=== PATIENT | male | born 1945 | race Caucasian/White ===

== ENCOUNTER 2020-02-29 10:55 | Inpatient (IN) | payer MEDICARE, OTHER ==
[2020-02-29] MEDS ORDERED: SODIUM CHLORIDE 0.9% 1000ML 1,000 ML IVS ONE (12:09)
--- NOTE | 2020-02-29 13:14 | CT ---
EXAM DESCRIPTION: Abdoment/Pelvis w/o Contrast CLINICAL HISTORY: possible uti, hx multiple urinary proce, diversion COMPARISON: None. TECHNIQUE: Noncontrast transaxial CT images of the abdomen and pelvis are obtained. This exam was performed according to our departmental dose-optimization program, which includes automated exposure control, adjustment of the mA and/or kV according to patient size and/or use of iterative reconstruction technique . FINDINGS: Lung bases are unremarkable. Cardiac pacemaker leads are seen. Given the limitations of a noncontrast exam a small hypodensity in the inferior right lobe liver is seen measuring 10 mm. Noncontrast appearance of the spleen, pancreas, and gallbladder are unremarkable. Right adrenal gland mass measures 2.6 cm with Hounsfield units of 6 compatible with adrenal adenoma. Left adrenal gland unremarkable. Moderate vascular calcifications. No left nephrolithiasis or ureteral calcification/obstruction. 4 mm nonobstructing calcification upper pole calyx of left kidney. Several nonobstructing calcifications in lower pole calyx of left kidney measure 9 mm. Percutaneous nephrostomy tube is seen in place from a lower pole access in the left kidney. No hydronephrosis. Small amount of air in the collecting system. No ureteral dilatation. Calcification measuring 4 mm x 5.5 mm in the region of the ureter extending anterior to the common iliac vessel is seen. Moderate calcifications of the left greater than right iliac arteries is seen. Postsurgical changes from resection of the urinary bladder with neobladder in the right lower quadrant. Ileostomy in the right lower quadrant is seen. Prostate is not identified and may be surgically absent as well. Small simple ascites in the dependent portion of the pelvis. Multiple surgical clips along the pelvic sidewall bilaterally. Moderate scattered diverticuli of the descending to sigmoid colon without associated inflammatory changes or fluid collections. Stomach poorly distended but unremarkable. No small bowel obstruction or bowel wall thickening. Small fat-containing umbilical hernia. No pathologically enlarged abdominal or retroperitoneal lymphadenopathy. Osseous structures show no aggressive bony lesions. Moderate to severe spondylitic changes of the spine are seen. IMPRESSION: Surgical absence of the urinary bladder prostate are seen with right lower quadrant neobladder. No complicating features. Left nephrostomy tube is seen in place without hydronephrosis. Possible mid ureteral calcification at the level of the left common iliac artery versus vascular calcification. Nonobstructing left nephrolithiasis is seen. Moderate colon diverticulosis without CT evidence of diverticulitis. Small ascites in the pelvis is likely reactive. Indeterminate hypodense lesion in the right lobe of the liver is seen. Electronically signed by: Abdiaziz Coombs MD 02/29/2020 1:12 PM CERTIFIED LEGAL SECRETARY SPECIALIST
[2020-02-29] MEDS ORDERED: FLUCONAZOLE 100 MG TAB PO ONE (13:40)
[2020-02-29] MEDS ORDERED: CEFEPIME 2 GM in SODIUM CHL 0.9% 100ML MINI-BAG 100 ML IVPB ONE (13:41)
[2020-02-29] MEDS ORDERED: metroNIDAZOLE IV PREMIX 500MG 500 MG in PREMIX BAG 1 BAG IVPB ONE (13:41)
[2020-02-29] MEDS ORDERED: levoFLOXacin 500MG IV 500 MG in PREMIX BAG 1 BAG IVPB ONE (13:41)
[2020-02-29] MEDS ORDERED: ACETAMINOPHEN 325 MG TAB PO ONE (14:58)
--- NOTE | 2020-02-29 14:58 | ED.PDOC ---
History of Present Illness - General Chief Complaint: Fever Time Seen by Provider: 02/29/20 11:55 Source: patient Exam Limitations: no limitations - History of Present Illness Initial Comments: The patient is a 74-year-old male presented to emergency room secondary to feeling like he was getting septic again from a Another urinary tract infection. The patient has had at least 3 significant ur inary tract infection since November. He has had it at [facility]. The patient has had multiple urinary procedures secondary to prostate bladder cancer with diverting urinary measures on multiple occasions. He apparently has an obstructing stone on the left and has an external diverting urostomy on the left and apparently a ureter diverted to an ileostomy on the right, with a neobladder formation. The patient is not having any particular pain aside from generalized body aches. No runny nose or sore throat. No known significant coronavirus exposure. No shortness of breath. No chest pain. He started feeling weak and shaky this morning like he has in the past. Timing/Duration: 1 week, constant, getting worse Severity: moderate, severe Improving Factors: nothing Worsening Factors: nothing Associated Symptoms: diaphoresis, loss of appetite, malaise, weakness Allergies/Adverse Reactions: Allergies NO KNOWN ALLERGY Allergy (Verified 02/29/20 12:24) Review of Systems - Review of Systems Constitutional: States: malaise, weakness - Generalized EENTM: States: no symptoms reported Respiratory: States: no symptoms reported Cardiology: States: no symptoms reported Gastrointestinal/Abdominal: States: nausea - Mild queasiness Genitourinary: States: see HPI Musculoskeletal: States: other - General myalgias Skin: States: no symptoms reported Neurological: States: headache - Mild Endocrine: States: no symptoms reported All other Systems: No Change from Baseline Past Medical History (General) - Patient Medical History Hx Seizures: No Hx Stroke: No Hx Dementia: No Hx Asthma: No Hx of COPD: No Hx Cardiac Disorders: Yes - A FIB Hx Pacemaker: Yes Hx Hypertension: Yes Hx Thyroid Disease: No Hx Diabetes: No Hx Gastroesophageal Reflux: No Hx Renal Disease: Yes - Bladder and prostate removel and use of bladder bag and leg bag. Hx Cancer: Yes - Bladder, prostate and colen. Hx of HIV: No Hx Hepatitis C: No Hx MRSA: No Surgical History: other - Vaccination History Hx Tetanus, Diphtheria Vaccination: No Hx Influenza Vaccination: No Hx Pneumococcal Vaccination: No - Social History Hx Tobacco Use: No Hx Chewing Tobacco Use: No Hx Alcohol Use: Yes Hx Substance Use: No Hx Substance Use Treatment: No Hx Depression: No Feels Threatened In Home Enviroment: No Feels Threatened In a Relationship: No Hx Physical Abuse: No Hx Emotional Abuse: No Hx Suspected Abuse: No - Female History Patient is a Female of Child Bearing Age (10 -59 yrs old): No - Triage Comment ED Triage Comment: The patient ambliated into ER bed 2 and was alert and oriented times 4. He complained of left lower back and left upper abdominal pain simular to the pain he had when the kidney stone was discovered. He advised that he had just not felt well for the past 2 days. Physical Exam - Physical Exam General Appearance: Alert, No apparent distress Eye Exam: bilateral normal Ears, Nose, Throat: hearing grossly normal, normal pharynx Neck: full range of motion, supple Respiratory: lungs clear, normal breath sounds, no respiratory distress, no accessory muscle use Cardiovascular/Chest: normal peripheral pulses, regular rate, rhythm, no edema Peripheral Pulses: radial,right: 2+, radial,left: 2+ Gastrointestinal/Abdominal: non tender, soft, other - Surgical changes noted Rectal Exam: deferred Back Exam: no CVA tenderness, no vertebral tenderness Extremity: normal range of motion, non-tender, normal inspection, no pedal edema, normal capillary refill 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, alert, normal mood/affect, oriented x 3 Skin Exam: normal color Comments: Vital Signs - 24 hr 02/29/20 02/29/20 02/29/20 11:22 12:00 12:49 Temperature 100.4 F H Pulse Rate [ 93 H 90 85 Pulse Ox] Respiratory 18 16 16 Rate Blood Pressure 129/67 121/73 138/76 [Left Arm] O2 Sat by Pulse 97 95 100 Oximetry 02/29/20 02/29/20 13:00 14:00 Temperature Pulse Rate [ 79 81 Pulse Ox] Respiratory 16 16 Rate Blood Pressure 128/68 127/65 [Left Arm] O2 Sat by Pulse 96 96 Oximetry Progress - Progress Progress: 02/29/20 15:02 The patient is a 74-year-old male presents emergency room with what appears to be a recurrence of bilateral pyelonephritis related to his multiple urological procedures. The patient is likely currently in septicemia. Blood cultures and urine cultures are being performed. He has received a liter of IV fluids. He is currently being placed on broad-spectrum antibiotics of cefepime, metronidazole and ciprofloxacin. Culture results have been requested from [facility] but are still pending at this time. The patient is going to be admitted for further antibiotic therapy. He has tested negative for coronavirus here today. Admit for continued care. blanca adamson [id number] - Results/Orders Results/Orders: Respiratory panel was negative. Pelvis shows the room placed. 10 mm hypodensity to the inferior right lower l obe liver. 2.6 cm right adrenal adenoma. Percutaneous nephrostomy tube in place from the lower pole of the left kidney. There is a distal obstructing stone in the ureter below it. Ileostomy in the right lower quadrant. Neobladder formation in the right lower quadrant. Is otherwise. See report for details. EKG shows mild right axis deviation. Normal R wave progression. No ST segment or T wave changes indicative of acute ischemia. Normal sinus rhythm 86 bpm. Normal QT interval. Laboratory Results - last 24 hr 02/29/20 02/29/20 02/29/20 11:50 12:20 12:25 WBC RBC Hgb Hct MCV MCH MCHC RDW Plt Count MPV Absolute Neuts (auto) Absolute Lymphs (auto) Absolute Monos (auto) Absolute Eos (auto) Absolute Basos (auto) Neutrophils % Lymphocytes % Monocytes % Eosinophils % Basophils % PT INR PTT (SP) D-Dimer, Quantitative Sodium 132 L Potassium 3.3 L Chloride 101 Carbon Dioxide 22 Anion Gap 12.3 BUN 12 Creatinine 0.91 BUN/Creatinine Ratio 13.2 Random Glucose 129 H Serum Osmolality 266.0 L Lactic Acid Calcium 8.4 Magnesium 1.7 L Total Bilirubin 1.2 H AST 23 ALT 17 Alkaline Phosphatase 53 Creatine Kinase 148 CK-MB (CK-2) 0.6 CK-MB (CK-2) % Not Reportable Troponin I 0.02 B-Natriuretic Peptide 128.0 H Serum Total Protein 7.0 Albumin 3.4 Globulin 3.6 H Albumin/Globulin Ratio 0.9 L Amylase 40 Lipase 26 Urine Color Yellow Yellow Urine Appearance Turbid Cloudy Urine pH 7.5 6.0 Ur Specific [place] 1.020 1.025 Urine Protein 100 H 100 H Urine Glucose (UA) Negative Negative Urine Ketones Negative Negative Urine Blood Moderate H Large H Urine Nitrite Positive H Positive H Urine Bilirubin Negative Negative Urine Urobilinogen 0.2 0.2 Ur Leukocyte Esterase Large H Large H Urine RBC 10-20 H 20-30 H Urine WBC >100 H Tntc H Ur Epithelial Cells 0 0 Urine Bacteria 3+ H 4+ H Urine Mucus Large Trace Urine Yeast 3+ budding 02/29/20 02/29/20 02/29/20 12:25 12:25 12:25 WBC 10.8 RBC 3.90 L Hgb 10.1 L Hct 30.4 L MCV 77.8 L MCH 26.0 L MCHC 33.4 RDW 17.1 H Plt Count 197 MPV 7.4 Absolute Neuts (auto) 8.80 H Absolute Lymphs (auto) 0.70 L Absolute Monos (auto) 1.30 H Absolute Eos (auto) 0.00 Absolute Basos (auto) 0.00 Neutrophils % 81.3 H Lymphocytes % 6.1 L Monocytes % 12.3 H Eosinophils % 0.0 L Basophils % 0.3 PT 12.7 H INR 1.28 H PTT (SP) 31.3 D-Dimer, Quantitative 531.0 H Sodium Potassium Chloride Carbon Dioxide Anion Gap BUN Creatinine BUN/Creatinine Ratio Random Glucose Serum Osmolality Lactic Acid 1.5 Calcium Magnesium Total Bilirubin AST ALT Alkaline Phosphatase Creatine Kinase CK-MB (CK-2) CK-MB (CK-2) % Troponin I B-Natriuretic Peptide Serum Total Protein Albumin Globulin Albumin/Globulin Ratio Amylase Lipase Urine Color Urine Appearance Urine pH Ur Specific [place] Urine Protein Urine Glucose (UA) Urine Ketones Urine Blood Urine Nitrite Urine Bilirubin Urine Urobilinogen Ur Leukocyte Esterase Urine RBC Urine WBC Ur Epithelial Cells Urine Bacteria Urine Mucus Urine Yeast Departure - Departure Clinical Impression: Pyelonephritis, Septicemia Disposition: Admit Patient Departure Forms: ED Discharge - Pt. Copy, Patient Portal Self Enrollment Decision To Admit - Decistion To Admit Decision to Admit Reason: Medical Nature Decision to Admit Date: 02/29/20 Decision to Admit Time: 15:04
--- NOTE | 2020-02-29 16:08 | HP ---
SUPERVISING PHYSICIAN: Modesto Krishna MD CHIEF COMPLAINT: "I probably have a urinary tract infection because I feel like shit." HISTORY OF PRESENT ILLNESS: This is a 74 year-old male patient who came to the Emergency Room with a 2-day history of bilateral back pain, fever and weakness consistent with 3 other urinary tract infections that he has had since November. This patient had bladder cancer and subsequently on November 24, had a cystectomy, partial bowel resection, prostatectomy with a diverting urostomy. Then, about 4 weeks ago the patient had an obstructing stone on the left so he had a nephrostomy tube placement on the left. Throughout this time, he had 3 separate occasions where he had urinary tract infections. He required IV antibiotics but is not near his home. He lives in [place], he does use [facility] for his urology issues, however, he is in [place] because he was deer hunting. Once again, these symptoms started about 2 days ago and he came to the Emergency Room today. He was found to have urinalysis consistent with urinary tract infection. In fact, he had 2 different urinalyses, one from the urostomy and one from the nephrostomy. Both were indicative of urinary tract infections with positive nitrites. Chemistry with a slightly low potassium at 3.3, sodium 132. Magnesium was low at 1.7, total bilirubin 1.2. Lactic acid 1.5. Coagulation studies were unremarkable. He did have a normal white count of 10.8 but did have a left shift of 81.3% neutrophils. Given his urostomy and nephrostomy and history of frequent urinary tract infections, he was referred for admission. The patient is alert and oriented and in no distress. PAST MEDICAL HISTORY: 1. Hypertension. 2. Gastroesophageal reflux disease. 3. Bladder cancer. 4. Cardiac arrhythmias. PAST SURGICAL HISTORY: 1. Lithotripsy. 2. Pacemaker. 3. Cardioversions, 4. Cystectomy with prostatectomy and partial bowel resection. CURRENT MEDICATIONS: The patient does not know his medications and wants us to contact [facility] for an accurate medication list. ALLERGIES: No known drug allergies. FAMILY HISTORY: His mother had Parkinson's and perivascular disease. A brother had renal cancer. SOCIAL HISTORY: The patient quit smoking about 3 to 4 years ago. He drinks scotch on occasion and has an occasional beer but nothing consistent. No illegal drugs. REVIEW OF SYSTEMS: CONSTITUTIONAL: Positive for fever and chills and weakness and fatigue. HEENT: No sore throat, nasal drainage, vision changes. CARDIOVASCULAR: No chest pain or palpitations or peripheral edema. RESPIRATORY: No cough, hemoptysis or pleuritic chest pain. GI: No nausea, vomiting or diarrhea, constipation or abdominal pain. : Positive for CVA tenderness bilaterally. No frequency, no dysuria, although he does have urostomy and nephrostomy, no polydipsia or polyuria or heat or cold intolerance. MUSCULOSKELETAL: No joint pain, joint swelling or muscle cramps. HEMATOLOGIC: No easy bruising or transfusion reaction. NEUROLOGICAL: No seizures, syncope or paraesthesias. PHYSICAL EXAMINATION: VITAL SIGNS: Blood pressure 111/60, heart rate 90, respiratory rate 20, temperature 98.2, oxygen saturation 97%. GENERAL: Mr. Porras is a 74 year-old male in no acute distress. NEUROLOGICAL: The patient is alert. CHEST: Lungs are clear to auscultation bilaterally. CARDIOVASCULAR: Regular rate and rhythm. Normal S1, S2. ABDOMEN: Soft, positive bowel sounds. He has the right lower quadrant urostomy in place and has the left nephrostomy tube noted as well. EXTREMITIES: Lower extremities without edema, 2+ pulses. Capillary refill less than 2 seconds. Labs are discussed in the history of present illness. He also have a CT abdomen/pelvis which does not reveal any significant hydronephrosis. ASSESSMENT: 1. Bilateral pyelonephritis. 2. History of bladder cancer status post cystectomy with prostatectomy and partial bowel resection with a urostomy and left-sided nephrostomy. 3. Hypertension. 4, Electrolyte imbalance. 5. Gastroesophageal reflux disease. PLAN: At this time, the patient will be admitted and placed on empiric antibiotics. Given the frequency of urinary tract infections since November, I am going to place him on meropenem and monitor the cultures. We will place on continuous IV fluids with 20 of potassium. I will give him a dose of magnesium as well. We will [id number] to get his records from [facility] and place him on Lovenox for DVT prophylaxis. Will recheck labs in the morning. #[id number] [facility]
[2020-02-29] MEDS ORDERED: LACTATED RINGERS 1,000 ML IVS PRN (17:08)
[2020-02-29] MEDS ORDERED: SODIUM CHLORIDE 0.9% (FLUSH) 10 ML SYG IV PRN (17:08)
[2020-02-29] MEDS ORDERED: MAGNESIUM SULFATE PREMIX 2GM 2 GM in PREMIX BAG 1 BAG IVPB ONE (17:22)
[2020-02-29] MEDS ORDERED: IV SET AND CAP CHANGE INJ INJ SCH (17:30)
[2020-02-29] MEDS ORDERED: ENOXAPARIN SODIUM 40 MG/0.4 ML SYG SUBCU SCH (17:30)
[2020-02-29] MEDS ORDERED: MAGNESIUM SULFATE PREMIX 2GM 50 ML IVPB ONE (18:09)
[2020-02-29] MEDS: KCL 20 MEQ/NS 1,000 ML IVS PRN (18:21)
[2020-02-29] MEDS ORDERED: traMADol HCL 50 MG TAB PO PRN (20:14)
[2020-02-29] MEDS: MEROPENEM 1 GM in SODIUM CHL 0.9% 50ML MIN-BAG+ 50 ML IVPB SCH (20:46)
[2020-02-29] MEDS: OMEPRAZOLE CAP 20 MG CAP PO SCH (20:53)
[2020-02-29] MEDS: APIXABAN 5 MG TAB PO SCH (20:53)
[2020-02-29] MEDS: METOPROLOL TARTRATE 25 MG TAB PO SCH (20:53)
[2020-02-29] MEDS: ACETAMINOPHEN 325 MG TAB PO PRN (21:10)
[2020-03-01] MEDS: KCL 20 MEQ/NS 1,000 ML IVS PRN ×3 (02:46→20:24)
[2020-03-01] MEDS: FLECAINIDE 50 MG TAB PO SCH ×3 (02:47→19:55)
[2020-03-01] MEDS: MEROPENEM 1 GM in SODIUM CHL 0.9% 50ML MIN-BAG+ 50 ML IVPB SCH ×4 (03:01→20:21)
[2020-03-01] MEDS: TAMSULOSIN 0.4 MG CAP PO SCH (10:15)
[2020-03-01] MEDS: APIXABAN 5 MG TAB PO SCH ×2 (10:15→19:55)
[2020-03-01] MEDS: METOPROLOL TARTRATE 25 MG TAB PO SCH ×2 (10:15→20:27)
[2020-03-01] MEDS: ACETAMINOPHEN 325 MG TAB PO PRN (13:47)
[2020-03-01] MEDS ORDERED: POTASSIUM CHLORIDE 20 MEQ TAB PO ONE (13:54)
--- NOTE | 2020-03-01 14:08 | PN ---
SUPERVISING PHYSICIAN: Modesto Krishna MD DATE: 03/01/20 SUBJECTIVE: The patient states he feels better today than he did yesterday. He does not have any complaints of nausea or vomiting at this time. OBJECTIVE: VITAL SIGNS: Blood pressure 114/59, heart rate 77, respiratory rate 18, temperature 98.9, oxygen saturation 97% on room air. He did have a temperature of 102.9 last night. GENERAL: Mr. Porras is a 74-year-old male patient in no active distress. NEUROLOGIC: The patient is alert. LUNGS: Clear to auscultation bilaterally. CARDIOVASCULAR: Regular rate and rhythm. Normal S1, S2. ABDOMEN: Soft. Still with urostomy and nephrostomy noted. LABORATORY: White count 6.7, hemoglobin 8.3 today. Chemistry with a low potassium at 3.3. ASSESSMENT: 1. Bilateral pyelonephritis. 2. History of bladder cancer status post cystectomy with prostatectomy and partial bowel resection with a urostomy placement and subsequent left-sided nephrostomy. 3. Hypertension. 4, Electrolyte imbalance. 5. Gastroesophageal reflux disease. PLAN: We do know that he has gram negative rods in his urine, so we will need to monitor that and see what grows out. Continue current antibiotics and IV fluids for now. [facility][id number] [facility]
[2020-03-01] MEDS: OMEPRAZOLE CAP 20 MG CAP PO SCH (19:55)
[2020-03-02] MEDS ORDERED: MEROPENEM 500 MG VIAL IVPB ONE (04:37)
[2020-03-02] MEDS ORDERED: SODIUM CHLORIDE 0.9% 50ML 0 ML ONE (04:39)
[2020-03-02] MEDS ORDERED: SODIUM CHL 0.9% 50ML MIN-BAG+ 50 ML IVPB ONE (04:41)
[2020-03-02] MEDS: MEROPENEM 1 GM in SODIUM CHL 0.9% 50ML MIN-BAG+ 50 ML IVPB SCH (04:49)
[2020-03-02] MEDS: KCL 20 MEQ/NS 1,000 ML IVS PRN (06:04)
[2020-03-02] MEDS ORDERED: CIPROFLOXACIN 250 MG TAB ONE (08:52)
[2020-03-02] MEDS ORDERED: CIPROFLOXACIN 500 MG TAB PO SCH (09:00)
[2020-03-02] MEDS: APIXABAN 5 MG TAB PO SCH (09:16)
[2020-03-02] MEDS: FLECAINIDE 50 MG TAB PO SCH (09:16)
[2020-03-02] MEDS: METOPROLOL TARTRATE 25 MG TAB PO SCH (09:17)
[2020-03-02] MEDS: TAMSULOSIN 0.4 MG CAP PO SCH (09:18)
[2020-03-02 15:31] VITALS: BP 133/72; TEMP 98.2; O2SAT 100
--- NOTE | 2020-03-03 14:30 | DS ---
SUPERVISING PHYSICIAN: Modesto Krishna MD ADMISSION DIAGNOSIS: 1. Bilateral pyelonephritis. 2. History of bladder cancer status post cystectomy with prostatectomy and partial bowel resection with a urostomy and left-sided nephrostomy. 3. Hypertension. 4, Electrolyte imbalance. 5. Gastroesophageal reflux disease. DISCHARGE DIAGNOSIS: 1. Bilateral pyelonephritis secondary to E. coli. 2. History of bladder cancer status post cystectomy with prostatectomy and partial bowel resection with a urostomy and left-sided nephrostomy. 3. Hypertension. 4, Electrolyte imbalance. 5. Gastroesophageal reflux disease. HOSPITAL COURSE: This is a 74 year-old male patient who came to the hospital feeling as though he had a recurrent urinary tract infection as he has had several in the past. He had bladder cancer with a subsequent cystectomy, partial bowel resection, prostatectomy with a diverting urostomy back on November 24. Later, he ended up needing a left-sided nephrostomy due to an obstructing stone but he has had several urinary tract infections since those surgeries. He was found to have findings consistent with pyelonephritis in the Emergency Room and was subsequently referred for admission. He got a culture from his urostomy as well as his nephrostomy and both came back with E. coli. Prior to knowing what the exact carrier was, he was placed on Merrem. After getting the results of the sensitivities, the Merrem was discontinued and the patient was placed on Cipro. Today, he will be discharged in stable condition. I have notified the patient he will need to take 14 days of Cipro in addition to the fact he needs to call his urologist at [facility] regarding the frequency of his urinary tract infections and potentially needing to be on something on a daily basis to prevent further urinary tract infections. DIET: As tolerated. ACTIVITIES: As tolerated. #[id number] [facility]
== END 2020-03-02 13:45 | disposition home or self-care (01) | DRG 699 ==
LOC: ER 10:55 → OBSVTOIN 16:07 → MS 16:07
PROVIDERS: ADMIT Nurse Practitioner; ATTEND Nurse Practitioner
DX: N99.521 Infection of incontinent external stoma of urinary tract (principal); N12 Tubulo-interstitial nephritis, not specified as acute or chronic; B96.20 Unspecified Escherichia coli [E. coli] as the cause of diseases classified elsewhere; E83.42 Hypomagnesemia; I10 Essential (primary) hypertension; K21.9 Gastro-esophageal reflux disease without esophagitis; Z90.6 Acquired absence of other parts of urinary tract; Z90.49 Acquired absence of other specified parts of digestive tract; Z95.0 Presence of cardiac pacemaker; Z87.891 Personal history of nicotine dependence; Z93.51 Cutaneous-vesicostomy status; Y84.6 Urinary catheterization as the cause of abnormal reaction of the patient, or of later complication, without mention of misadventure at the time of the procedure; Y73.2 Prosthetic and other implants, materials and accessory gastroenterology and urology devices associated with adverse incidents; Y92.9 Unspecified place or not applicable